=== PATIENT | female | born 1965 | race Two or more races ===

== ENCOUNTER 2020-04-03 06:10 | Day surgery (SDC) | payer OTHER ==
[~2020-04-03 06:10] MED LIST: BENADRYL25 MG PO; CATAFLAM50 MG PO; PROTONIX40 MG PO; ULTRAM50 MG PO
== END 2020-04-03 16:30 | disposition home or self-care (01) ==
LOC: CIR.AMB 06:10
PROVIDERS: ATTEND Obstetrics & Gynecology
DX: N84.0 Polyp of corpus uteri (principal); Z20.828 Contact with and (suspected) exposure to other viral communicable diseases